=== PATIENT | male | born 1955 | race Caucasian/White ===

== ENCOUNTER 2022-06-14 08:05 | Emergency (ER) | payer OTHER ==
[~2022-06-14] VITALS: Ht 205.7 cm; Wt 143.3 kg
[2022-06-14] MEDS ORDERED: LIDOCAINE 2% JEL UROJET 10 ML MM ONE (08:24)
--- NOTE | 2022-06-14 08:45 | NUR ---
COUDE CATH FR 16 INSERTED ASEPTICALLY; ABLE TO DRAIN URINE OF YELLOW-SAÚL COLORATION VIA DRAIN BAG. URINE SAMPLE COLLECTED AND SENT TO LAB.
--- NOTE | 2022-06-14 08:51 | NUR ---
PHLEB TECH AT BEDSIDE FOR BLOOD DRAW
[2022-06-14 09:21] LABS: CALCIUM, SERUM 9.2 mg/dL (8.5-10.1); CREATININE 1.5 mg/dL (0.6-1.3)
[2022-06-14] MEDS ORDERED: IV NS 0.9% 1,000 ML IV ONE (09:30)
[2022-06-14 09:43] LABS: BILIRUBIN,URINE NEGATIVE (NEGATIVE); COLOR,URINE YELLOW (YELLOW); LEUKOCYTE ESTERASE ,URINE NEGATIVE (NEGATIVE); NITRITE, URINE POSITIVE (NEGATIVE); PROTEIN,URINE NEGATIVE (NEGATIVE); UGLUCOSE NEGATIVE (NEGATIVE); UROBILINOGEN,URINE 0.2 EU/dL (0.2)
[2022-06-14 09:46] LABS: BACTERIA,URINE Moderate /HPF (None Seen); RBC,URINE 0-2 /HPF (0-2); SQUAMOUS EPITHELIAL CELL,UR Few /HPF (None Seen); WBC,URINE 0-2 /HPF (0-3)
--- NOTE | 2022-06-14 09:54 | NUR ---
IV LINE ESTABLISHED ON LEFT HAND #22; IV NS ADMINISTERED, INFUSING WELL.
--- NOTE | 2022-06-14 10:42 | NUR ---
[facility] CALLED FOR TRANSPORT ETA 90 MINS PER SAM.
--- NOTE | 2022-06-14 12:03 | NUR ---
EMT AT BEDSIDE TO PICKUP PT.
--- NOTE | 2022-06-14 12:05 | NUR ---
IV removed. Catheter intact and site benign. Pressure and 4x4 applied to site. No bleeding noted.
--- NOTE | 2022-06-14 12:07 | NUR ---
Patient discharged to home in stable condition, accompanied by 2 billet checker. Written and verbal after care instructions given. Patient verbalizes understanding of instruction.
[2022-06-14 12:16] VITALS: BP 128/80
== END 2022-06-14 12:16 | disposition home or self-care (01) ==
LOC: ER 08:09
DX: R33.9 Retention of urine, unspecified (principal); I10 Essential (primary) hypertension; Z98.890 Other specified postprocedural states
CPT/HCPCS: 99284; 96360; 51702; 80048; 87086; 81001; 36415; J3490; J7030